=== PATIENT | male | born 1975 | race Caucasian/White ===

== ENCOUNTER 2023-07-08 22:44 | Inpatient (IN) | payer SELFPAY ==
[~2023-07-08] VITALS: Ht 177.8 cm; Wt 115.0 kg
[2023-07-08] MEDS ORDERED: SODIUM CHLORIDE 0.9% 1,000 ML IV ONE (23:15)
[2023-07-08 23:36] LABS: Basophils # (auto) 0.1 10 ^3/uL (0-0.2); Basophils % (auto) 0.6 % (0.0-2.0); Eosinophils # (auto) 0.1 10 ^3/uL (0-0.8); Eosinophils % (auto) 0.5 % (0.0-7.0); Hematocrit 40.2 % (41.0-53.0); Hemoglobin 13.9 g/dL (13.5-17.5); Lymphocytes # (auto) 1.8 10 ^3/uL (0.4-5.4); Lymphocytes % (auto) 11.6 % (10.0-50.0); Mean Corpuscular Hemoglobin 30.7 pg (28.0-32.0); Mean Corpuscular Hgb Conc. 34.5 g/dL (32.0-36.0); Mean Corpuscular Volume 89.2 fL (80.0-100.0); Monocytes % (auto) 6.6 % (0.0-12.0); Neutrophils # (auto) 12.4 10 ^3/uL (1.6-8.6); Neutrophils % (auto) 80.7 % (37.0-80.0); Nucleated Red Blood Cells % 0.2 %; Red Blood Cells 4.51 10^6/uL (4.5-5.90); Red Cell Distribution Width 12.8 % (11.8-14.3); White Blood Cell 15.4 10^3/uL (4.4-10.8)
[2023-07-08 23:56] LABS: Amphetamine Screen, Urine Neg (NEGATIVE)
[2023-07-08 23:57] LABS: Alanine Aminotransferase 131 U/L (7-40); Alkaline Phosphatase 87 U/L (46-116); Anion Gap 13 (5-15); BUN/Creatinine Ratio 9.7 (10.0-20.0); Blood Urea Nitrogen 10 mg/dL (9-23); Carbon Dioxide 22 mmol/L (20-30); Chloride 94 mmol/L (98-107); Glucose 400 mg/dL (74-106); Potassium 3.9 mmol/L (3.5-5.1); Sodium 129 mmol/L (136-145)
[2023-07-08 23:57] LABS: Barbiturate Scree,Urine Neg (NEGATIVE); Benzodiazephine Screen, Urine Neg (NEGATIVE); Cannabinoid Screen, Urine Neg (NEGATIVE); Cocaine Screen, Urine Neg (NEGATIVE); Opiate Scree,Urine Neg (NEGATIVE)
[2023-07-08 23:58] LABS: Albumin 4.7 g/dL (3.2-4.8); Bilirubin, Total 0.7 mg/dL (0.2-1.0); Total Protein 7.4 g/dL (5.7-8.2)
[2023-07-09] VITALS (8 sets, daily range): BP systolic 102–129; BP diastolic 50–64; PULSE 115–126; RESP 16–20; TEMP 98.5–101.1; O2SAT 90–98
[2023-07-09 00:05] LABS: Aspartate Aminotransferase 71 U/L (13-40)
[2023-07-09 00:06] LABS: CRP High Sensitivity 6.55 mg/dL (<1.0)
[2023-07-09 00:11] LABS: Phencyclidine Screen, Urine Neg (NEGATIVE)
[2023-07-09 00:16] LABS: Lactic Acid w/Reflex 2.9 mmol/L (0.4-2.0)
[2023-07-09] MEDS ORDERED: MORPHINE SULFATE 4 MG/ML SYR/VIAL IV ONE ×2 (00:45→03:30)
[2023-07-09] MEDS ORDERED: PIPERACILLIN-TAZOB 3.375GM 100 ML IV ONE (00:45)
[2023-07-09] MEDS ORDERED: InsuLIN REG 1unit/0.01ml Soln (100units/ml) IV ONE (01:45)
[2023-07-09] MEDS ORDERED: ONDANSETRON HCL 4 MG/2 ML VIAL IV ONE (03:30)
[2023-07-09 04:49] LABS: Urine Bacteria FEW /hpf (None Seen); Urine Blood Negative /uL (Negative); Urine Clarity Clear (Clear); Urine Color Colorless (Yellow); Urine Protein, UAD Negative (Negative); Urine Urobilinogen Normal (Negative); Urine WBC <1 /hpf (0 - 3)
[2023-07-09 04:50] LABS: Urine Specific Gravity > 1.050 (1.001-1.035)
[2023-07-09] MEDS ORDERED: ACETAMINOPHEN 325 MG TAB PO PRN (05:15)
[2023-07-09] MEDS ORDERED: ONDANSETRON HCL 4 MG/2 ML VIAL IV PRN (05:15)
[2023-07-09] MEDS ORDERED: MORPHINE SULFATE INJ 2 MG/ml SYRG IV PRN (05:15)
[2023-07-09] MEDS ORDERED: DEXTROSE (50%) 50ML SYRG IV PRN (05:15)
[2023-07-09] MEDS ORDERED: TEMAZEPAM 15 MG CAP PO PRN (05:15)
[2023-07-09] MEDS ORDERED: VANCOMYCIN PER PHARMACY 0 MG IV SCH (05:15)
[2023-07-09] MEDS ORDERED: NITROGLYCERIN 0.4 MG SL TAB SL PRN (05:15)
[2023-07-09] MEDS: InsuLIN REG 1unit/0.01ml Soln (100units/ml) SC SCH ×3 (05:47→18:58)
[2023-07-09] MEDS: ACCU-CHEK COMFORT CURVE STRIP VI SCH ×4 (05:48→23:58)
[2023-07-09] MEDS ORDERED: PIPERACILLIN-TAZOB 3.375GM 100 ML IV SCH (06:00)
[2023-07-09] MEDS ORDERED: VANCOMYCIN 1GM/250ML 250 ML IV ONE (06:00)
[2023-07-09] MEDS ORDERED: SODIUM CHLORIDE 0.9% 1,000 ML IV ONE (06:15)
[2023-07-09] MEDS: LISINOPRIL 20 MG TAB PO SCH (10:51)
[2023-07-09] MEDS: AMPICILLIN & SULBACTAM SODIUM 3 GM in SODIUM CHL 0.9% 100 ML IV SCH ×2 (13:02→20:43)
[2023-07-09] MEDS: HYDROcodone-ACET 5/325MG TAB PO PRN ×2 (13:14→18:40)
[2023-07-09] MEDS ORDERED: METF-370 PO (14:31)
[2023-07-09] MEDS ORDERED: ATOR20TA PO (14:31)
[2023-07-09] MEDS: LACTATED RINGER'S 1,000 ML IV SCH ×2 (15:09→21:45)
[2023-07-09] MEDS: VANCOMYCIN 1GM/250ML 250 ML IV SCH (16:54)
[2023-07-09] MEDS: metFORMIN HYDROCHLORIDE 500 MG TAB PO SCH (18:00)
[2023-07-09] MEDS: ATORVASTATIN 20 MG TAB PO SCH (20:44)
[2023-07-10] VITALS (9 sets, daily range): BP systolic 110–140; BP diastolic 62–80; PULSE 100–119; RESP 18–20; TEMP 98.2–99.4; O2SAT 94–99
[2023-07-10] MEDS: InsuLIN REG 1unit/0.01ml Soln (100units/ml) SC SCH ×4 (00:01→17:39)
[2023-07-10] MEDS: HYDROcodone-ACET 5/325MG TAB PO PRN ×3 (00:10→17:32)
[2023-07-10] MEDS: VANCOMYCIN 1GM/250ML 250 ML IV SCH ×3 (01:34→20:56)
[2023-07-10] MEDS: AMPICILLIN & SULBACTAM SODIUM 3 GM in SODIUM CHL 0.9% 100 ML IV SCH ×4 (02:58→21:34)
[2023-07-10] MEDS: ACCU-CHEK COMFORT CURVE STRIP VI SCH ×4 (05:12→21:53)
[2023-07-10] MEDS: LACTATED RINGER'S 1,000 ML IV SCH ×2 (05:15→18:34)
[2023-07-10 05:33] LABS: Basophils # (auto) 0 10 ^3/uL (0-0.2); Basophils % (auto) 0.3 % (0.0-2.0); Eosinophils # (auto) 0.1 10 ^3/uL (0-0.8); Eosinophils % (auto) 1.2 % (0.0-7.0); Hematocrit 35.5 % (41.0-53.0); Hemoglobin 11.9 g/dL (13.5-17.5); Lymphocytes # (auto) 1.2 10 ^3/uL (0.4-5.4); Lymphocytes % (auto) 10.3 % (10.0-50.0); Mean Corpuscular Hemoglobin 30.1 pg (28.0-32.0); Mean Corpuscular Hgb Conc. 33.6 g/dL (32.0-36.0); Mean Corpuscular Volume 89.8 fL (80.0-100.0); Monocytes # (auto) 0.9 10 ^3/uL (0-1.3); Monocytes % (auto) 8.1 % (0.0-12.0); Neutrophils # (auto) 9.1 10 ^3/uL (1.6-8.6); Neutrophils % (auto) 80.1 % (37.0-80.0); Nucleated Red Blood Cells % 0.1 %; Red Blood Cells 3.96 10^6/uL (4.5-5.90); Red Cell Distribution Width 13.5 % (11.8-14.3); White Blood Cell 11.4 10^3/uL (4.4-10.8)
[2023-07-10 05:53] LABS: Alanine Aminotransferase 122 U/L (7-40); Albumin 3.9 g/dL (3.2-4.8); Alkaline Phosphatase 79 U/L (46-116); Anion Gap 6 (5-15); Aspartate Aminotransferase 64 U/L (13-40); Blood Urea Nitrogen 8 mg/dL (9-23); Carbon Dioxide 28 mmol/L (20-30); Chloride 99 mmol/L (98-107); Potassium 4.1 mmol/L (3.5-5.1); Sodium 133 mmol/L (136-145)
[2023-07-10 05:54] LABS: Bilirubin, Total 0.9 mg/dL (0.2-1.0); Total Protein 6.1 g/dL (5.7-8.2)
[2023-07-10 06:23] LABS: Glucose 233 mg/dL (74-106)
[2023-07-10] MEDS: metFORMIN HYDROCHLORIDE 500 MG TAB PO SCH ×2 (08:30→17:40)
[2023-07-10] MEDS: LISINOPRIL 20 MG TAB PO SCH (09:10)
[2023-07-10] MEDS ORDERED: DEXTROSE (50%) 50ML SYRG IV PRN (14:45)
[2023-07-10] MEDS ORDERED: InsuLIN REG 1unit/0.01ml Soln (100units/ml) SC SCH (22:00)
[2023-07-10] MEDS: ATORVASTATIN 20 MG TAB PO SCH (22:00)
[2023-07-11] MEDS: HYDROcodone-ACET 5/325MG TAB PO PRN ×2 (01:37→09:34)
[2023-07-11] MEDS: AMPICILLIN & SULBACTAM SODIUM 3 GM in SODIUM CHL 0.9% 100 ML IV SCH ×3 (03:07→15:00)
[2023-07-11] MEDS: LACTATED RINGER'S 1,000 ML IV SCH ×2 (03:45→13:45)
[2023-07-11] MEDS: VANCOMYCIN 1GM/250ML 250 ML IV SCH ×2 (03:57→12:17)
[2023-07-11 05:00] VITALS: BP 127/78; PULSE 119; RESP 18; TEMP 98.4; O2SAT 93
[2023-07-11 05:57] LABS: Basophils # (auto) 0 10 ^3/uL (0-0.2); Basophils % (auto) 0.3 % (0.0-2.0); Chloride 98 mmol/L (98-107); Eosinophils # (auto) 0.1 10 ^3/uL (0-0.8); Eosinophils % (auto) 0.9 % (0.0-7.0); Hematocrit 36.9 % (41.0-53.0); Hemoglobin 12.5 g/dL (13.5-17.5); Lymphocytes % (auto) 10.4 % (10.0-50.0); Mean Corpuscular Hemoglobin 30.5 pg (28.0-32.0); Mean Corpuscular Hgb Conc. 33.9 g/dL (32.0-36.0); Monocytes # (auto) 0.9 10 ^3/uL (0-1.3); Monocytes % (auto) 8.9 % (0.0-12.0); Neutrophils # (auto) 7.7 10 ^3/uL (1.6-8.6); Neutrophils % (auto) 79.5 % (37.0-80.0); Potassium 3.8 mmol/L (3.5-5.1); Red Blood Cells 4.09 10^6/uL (4.5-5.90); Red Cell Distribution Width 13.4 % (11.8-14.3); Sodium 131 mmol/L (136-145); White Blood Cell 9.7 10^3/uL (4.4-10.8)
[2023-07-11 05:58] LABS: Anion Gap 8 (5-15); Carbon Dioxide 25 mmol/L (20-30)
[2023-07-11 06:03] LABS: Blood Urea Nitrogen 7 mg/dL (9-23); Glucose 189 mg/dL (74-106)
[2023-07-11] MEDS: ACCU-CHEK COMFORT CURVE STRIP VI SCH ×2 (06:28→12:10)
[2023-07-11] MEDS: InsuLIN REG 1unit/0.01ml Soln (100units/ml) SC SCH ×2 (06:29→12:11)
[2023-07-11 08:00] VITALS: PULSE 115
[2023-07-11 08:30] VITALS: BP 166/98; PULSE 96; RESP 22; TEMP 98.3; O2SAT 98
[2023-07-11] MEDS: metFORMIN HYDROCHLORIDE 500 MG TAB PO SCH (09:36)
[2023-07-11] MEDS: LISINOPRIL 20 MG TAB PO SCH (09:37)
[2023-07-11] MEDS ORDERED: LEVO500T91 PO (11:54)
[2023-07-11] MEDS ORDERED: LISI20TA56 PO (11:54)
[2023-07-11 12:33] VITALS: BP 139/70; PULSE 74; RESP 20; TEMP 36.8; O2SAT 98
[2023-07-11 13:00] VITALS: BP 129/76; PULSE 113; RESP 20; TEMP 98.4; O2SAT 95
== END 2023-07-11 14:40 | disposition home or self-care (01) | DRG 872 ==
LOC: ER 22:44 → TELE 07-09 05:10 → TELE-WESTW 07-09 12:22
PROVIDERS: ADMIT Nurse Practitioner; ATTEND Internal Medicine
DX: A41.9 Sepsis, unspecified organism (principal); L03.113 Cellulitis of right upper limb; E66.9 Obesity, unspecified; Z68.36 Body mass index [BMI] 36.0-36.9, adult; E11.65 Type 2 diabetes mellitus with hyperglycemia; E78.5 Hyperlipidemia, unspecified; I10 Essential (primary) hypertension
CPT/HCPCS: 36415; 71045; 73206; 80048; 80053; 80202; 80307; 81001; 82962; 83036; 83605; 85025; 86141; 87040; 93005; 99291; G0378; J1815; J2405; J2543